=== PATIENT | male | born 2000 | race Caucasian/White ===

== ENCOUNTER 2019-06-26 18:54 | Emergency (ER) | payer OTHER ==
[~2019-06-26] VITALS: Ht 180 cm; Wt 79.9 kg
[2019-06-26 19:15] LABS: BILIRUBIN,URINE NEGATIVE (NEGATIVE); CLARITY,URINE CLEAR; COLOR,URINE YELLOW; GLUCOSE, URINE (UA) NEGATIVE (NEGATIVE); KETONES,URINE NEGATIVE (NEGATIVE); LEUKOCYTE ESTERASE ,URINE NEGATIVE (NEGATIVE); NITRITE,URINE NEGATIVE (NEGATIVE); PROTEIN,URINE NEGATIVE (NEGATIVE)
[2019-06-26 19:23] LABS: BACTERIA,URINE TRACE /HPF; SQUAMOUS EPITHELIAL CELL,UR RARE /HPF; WBC,URINE 0-2 /HPF
--- NOTE | 2019-06-26 19:32 | ED GU-Female ---
General Chief Complaint: - Urinary Stated Complaint: GROIN PAIN Nursing Triage Note: Patient ambulatory to ER triage room with complaint of lower abdominal/pelvic pain. Patient states this pain has been intermittent x 1 month but today the pain got much worse. He does have burning with urination. Nursing Sepsis Screen: No Definite Risk Source: patient Exam Limitations: no limitations History of Present Illness Date Seen by Provider: Jun 26, 2019 Time Seen by Provider: 19:30 Initial Comments To ER with reports of 6 months of dysuria, intermittent abdominal pain nausea and a subjective fever according to the since last night. She states he must have had a fever because "it was like a sauna sleeping next to him". He states that occasionally this pain radiates into his penis and occasionally radiates into his testicles but None currently. States that he has about 4-5 bowel movements per day, states he is a very anxious person, he states he is not an anxious person. Timing/Duration: constant Severity/Quality: moderate Location: suprapubic Radiation: none Activities at Onset: none Prior Genitourinary Problems: none Associated Symptoms: dysuria Allergies and Home Medications Allergies Coded Allergies: No Known Drug Allergies (Unverified , 06/26/19) Patient Home Medication List Home Medication List Reviewed: Yes Review of Systems Review of Systems Constitutional: see HPI EENTM: see HPI Respiratory: no symptoms reported Cardiovascular: no symptoms reported Genitourinary: no symptoms reported Musculoskeletal: no symptoms reported Skin: no symptoms reported Psychiatric/Neurological: No Symptoms Reported Endocrine: No Symptoms Reported Hematologic/Lymphatic: No Symptoms Reported Past Gaqefvf-Nubcyy-Cuocsv Hx Patient Social History Alcohol Use: Occasionally Uses Recreational Drug Use: No Smoking Status: Never a Smoker 2nd Hand Smoke Exposure: No Recent Foreign Travel: No Contact w/Someone Who Travel: No Recent Infectious Disease Expo: No Recent Hopitalizations: No Immunizations Up To Date Tetanus Booster (TDap): Less than 5yrs PED Vaccines UTD: Yes Seasonal Allergies Seasonal Allergies: No Past Medical History Surgeries: Yes Appendectomy Respiratory: No Cardiac: No Neurological: No Genitourinary: No Gastrointestinal: No Musculoskeletal: No Endocrine: No HEENT: No Cancer: No ADD/ADHD, Bipolar Integumentary: No Physical Exam Vital Signs Vital Signs - First Documented 06/26/19 19:00 Temp 36.9 Pulse 75 Resp 16 B/P (MAP) 131/76 (94) Pulse Ox 98 O2 Delivery Room Air Capillary Refill : Less Than 3 Seconds Height, Weight, BMI Height: '" Weight: lbs. oz. kg; 24.00 BMI Method: General Appearance: WD/WN, no apparent distress HEENT: PERRL/EOMI, normal ENT inspection Neck: non-tender, full range of motion Respiratory: no respiratory distress, no accessory muscle use Gastrointestinal: normal bowel sounds, soft, other (mild diffuse tenderness) Genital/Rectal: normal genital exam Extremities: normal range of motion, non-tender Neurologic/Psychiatric: alert, normal mood/affect, oriented x 3 Skin: normal color, warm/dry Progress/Results/Core Measures Suspected Sepsis Recent Fever Within 48 Hours: No Infection Criteria Present: None New/Unexplained Altered Menta: No Sepsis Screen: No Definite Risk SIRS Temperature: Pulse: 75 Respiratory Rate: 16 Laboratory Tests 06/26/19 19:38: White Blood Count 9.4 Blood Pressure 131 /76 Mean: 94 Laboratory Tests 06/26/19 19:38: Creatinine 1.24, Platelet Count 323, Total Bilirubin 0.3 Results/Orders Lab Results Laboratory Tests Test 06/26/19 19:11 06/26/19 19:38 Range/Units Urine Color YELLOW Urine Clarity CLEAR Urine pH 7.0 5-9 Urine Specific [place] 1.025 H 1.016-1.022 Urine Protein NEGATIVE NEGATIVE Urine Glucose (UA) NEGATIVE NEGATIVE Urine Ketones NEGATIVE NEGATIVE Urine Nitrite NEGATIVE NEGATIVE Urine Bilirubin NEGATIVE NEGATIVE Urine Urobilinogen 0.2 < = 1.0 MG/DL Urine Leukocyte Esterase NEGATIVE NEGATIVE Urine RBC (Auto) NEGATIVE NEGATIVE Urine RBC NONE /HPF Urine WBC 0-2 /HPF Urine Squamous Epithelial Cells RARE /HPF Urine Crystals NONE /LPF Urine Bacteria TRACE /HPF Urine Casts NONE /LPF Urine Mucus SMALL H /LPF Urine Culture Indicated NO White Blood Count 9.4 4.3-11.0 10^3/uL Red Blood Count 4.80 4.35-5.85 10^6/uL Hemoglobin 14.7 13.3-17.7 G/DL Hematocrit 43 40-54 % Mean Corpuscular Volume 89 80-99 FL Mean Corpuscular Hemoglobin 31 25-34 PG Mean Corpuscular Hemoglobin Concent 35 32-36 G/DL Red Cell Distribution Width 12.9 10.0-14.5 % Platelet Count 323 130-400 10^3/uL Mean Platelet Volume 9.7 7.4-10.4 FL Neutrophils (%) (Auto) 57 42-75 % Lymphocytes (%) (Auto) 26 12-44 % Monocytes (%) (Auto) 13 H 0-12 % Eosinophils (%) (Auto) 3 0-10 % Basophils (%) (Auto) 1 0-10 % Neutrophils # (Auto) 5.3 1.8-7.8 X 10^3 Lymphocytes # (Auto) 2.5 1.0-4.0 X 10^3 Monocytes # (Auto) 1.2 H 0.0-1.0 X 10^3 Eosinophils # (Auto) 0.3 0.0-0.3 10^3/uL Basophils # (Auto) 0.1 0.0-0.1 10^3/uL Sodium Level 139 135-145 MMOL/L Potassium Level 4.0 3.6-5.0 MMOL/L Chloride Level 106 98-107 MMOL/L Carbon Dioxide Level 22 21-32 MMOL/L Anion Gap 11 5-14 MMOL/L Blood Urea Nitrogen 17 7-18 MG/DL Creatinine 1.24 0.60-1.30 MG/DL Estimat Glomerular Filtration Rate > 60 BUN/Creatinine Ratio 14 Glucose Level 102 70-105 MG/DL Calcium Level 8.7 8.5-10.1 MG/DL Corrected Calcium 8.5 8.5-10.1 MG/DL Total Bilirubin 0.3 0.1-1.0 MG/DL Aspartate Amino Transf (AST/SGOT) 22 5-34 U/L Alanine Aminotransferase (ALT/SGPT) 26 0-55 U/L Alkaline Phosphatase 76 40-136 U/L Total Protein 6.8 6.4-8.2 GM/DL Albumin 4.3 3.2-4.5 GM/DL My Orders Orders - KIM GAMBLE APRN Neis Armond Dna Urine Test (06/26/19 19:11) Chlamydia Trachomatis Urine (06/26/19 19:11) Cbc With Automated Diff (06/26/19 19:30) Comprehensive Metabolic Panel (06/26/19 19:30) Ct Abd/Pelvis Wo(Kidney Stone) (06/26/19 19:30) Dicyclomine Capsule (Bentyl Capsule) (06/26/19 19:45) Vital Signs/I&O 06/26/19 06/26/19 19:00 19:54 Temp 36.9 36.9 Pulse 75 Resp 16 B/P (MAP) 131/76 (94) Pulse Ox 98 O2 Delivery Room Air Capillary Refill : Less Than 3 Seconds Blood Pressure Mean: 94 Diagnostic Imaging Diagonstic Imaging: CT Comments NAME: STEPHANIE JOHNSON [facility] REC#: [id number] PT STATUS: REG ER : 2000 PHYSICIAN: KIM GAMBLE INVENTORY ASSOCIATE ADMIT DATE: 06/26/19/ER Draft Date of Exam:06/26/19 CT ABD/PELVIS WO(KIDNEY STONE) PROCEDURE: CT urinary tract, rule out kidney stone. TECHNIQUE: Multiple contiguous axial images were obtained through the abdomen and pelvis without the use of intravenous contrast. Auto Exposure Controls were utilized during the CT exam to meet ALARA standards for radiation dose reduction. INDICATION: Left lower quadrant abdominal pain COMPARISON: None FINDINGS: The lung bases are clear. Gallbladder is contracted. There is food within the stomach. Solid organs have a normal appearance. There is some mild constipation throughout the colon without obstruction or ileus. The small bowel is normal. Distal ureters and urinary bladder are normal. There is no inflammatory process. The appendix is surgically absent. No hernia identified. Osseous structures are age-appropriate. IMPRESSION: 1. Mild constipation without obstruction or ileus 2. No renal calculi or hydronephrosis 3. Surgically absent appendix. Dictated on workstation # [id number] Dict: 06/26/191945 Trans: 06/26/19 [facility] [id number] Interpreted by: CLAY GONCALVES Electronically signed by: Departure Impression Primary Impression: Abdominal pain Qualified Codes: R10.84 - Generalized abdominal pain Disposition: 01 HOME, SELF-CARE Condition: Improved Departure-Patient Inst. Decision time for Depature: 19:57 Referrals: ORIANA JOSEPH HOLLY A MD ENOCH, BETHANY N MD GARNER, MINDI DO GELLENDER, RICHARD A DO NO,LOCAL PHYSICIAN (PCP) Primary Care Physician VIDAL RAMACHANDRAN CHAD C MD Patient Instructions: Acute Abdomen (Belly Pain), Adult (DC) Add. Discharge Instructions: 1. Follow-up with your regular physician later this week for recheck. If you do not have one a list has been provided for you. All discharge instructions reviewed with patient and/or family. Voiced understanding. Scripts Dicyclomine HCl (Dicyclomine HCl) 10 Mg Capsule 10 MG PO TID, #10 CAP Prov: KIM GAMBLE APRN 06/26/19 KIM GAMBLE APRN Jun 26, 2019 19:32
[2019-06-26 19:43] LABS: BASOPHILS # (AUTO) 0.1 10^3/uL (0.0-0.1); BASOPHILS % (AUTO) 1 % (0-10); EOSINOPHILS # (AUTO) 0.3 10^3/uL (0.0-0.3); EOSINOPHILS % (AUTO) 3 % (0-10); HEMATOCRIT 43 % (40-54); HEMOGLOBIN 14.7 G/DL (13.3-17.7); LYMPHOCYTES # (AUTO) 2.5 X 10^3 (1.0-4.0); LYMPHOCYTES % (AUTO) 26 % (12-44); MEAN CORPUSCULAR HEMOGLOBIN 31 PG (25-34); MEAN CORPUSCULAR HGB CONC 35 G/DL (32-36); MEAN CORPUSCULAR VOLUME 89 FL (80-99); MEAN PLATELET VOLUME 9.7 FL (7.4-10.4); MONOCYTES # (AUTO) 1.2 X 10^3 (0.0-1.0); MONOCYTES % (AUTO) 13 % (0-12); NEUTROPHILS # (AUTO) 5.3 X 10^3 (1.8-7.8); NEUTROPHILS % (AUTO) 57 % (42-75); PLATELET COUNT 323 10^3/uL (130-400); RED CELL DISTRIBUTION WIDTH 12.9 % (10.0-14.5); WHITE BLOOD COUNT 9.4 10^3/uL (4.3-11.0)
[2019-06-26] MEDS ORDERED: DICYCLOMINE 10 MG (BENTYL) CAP PO SCH (19:45)
--- NOTE | 2019-06-26 19:55 | Diagnostic Imaging Report ---
PROCEDURE: CT urinary tract, rule out kidney stone. TECHNIQUE: Multiple contiguous axial images were obtained through the abdomen and pelvis without the use of intravenous contrast. Auto Exposure Controls were utilized during the CT exam to meet ALARA standards for radiation dose reduction. INDICATION: Left lower quadrant abdominal pain COMPARISON: None FINDINGS: The lung bases are clear. Gallbladder is contracted. There is food within the stomach. Solid organs have a normal appearance. There is some mild constipation throughout the colon without obstruction or ileus. The small bowel is normal. Distal ureters and urinary bladder are normal. There is no inflammatory process. The appendix is surgically absent. No hernia identified. Osseous structures are age-appropriate. IMPRESSION: 1. Mild constipation without obstruction or ileus 2. No renal calculi or hydronephrosis 3. Surgically absent appendix. Dictated by: Dictated on workstation # [id number]
[2019-06-26 20:00] LABS: ALANINE AMINOTRANSFERASE 26 U/L (0-55); ALBUMIN 4.3 GM/DL (3.2-4.5); ALKALINE PHOSPHATASE 76 U/L (40-136); BILIRUBIN,TOTAL 0.3 MG/DL (0.1-1.0); BUN/CREATININE RATIO 14; CALCIUM 8.7 MG/DL (8.5-10.1); CARBON DIOXIDE 22 MMOL/L (21-32); CHLORIDE 106 MMOL/L (98-107); CREATININE SERUM 1.24 MG/DL (0.60-1.30); GFR ESTIMATED > 60; GLUCOSE 102 MG/DL (70-105); SODIUM 139 MMOL/L (135-145); TOTAL PROTEIN 6.8 GM/DL (6.4-8.2)
[2019-06-26 20:25] VITALS: BP 131/76
[2019-06-26] MEDS ORDERED: DICY10CA12 PO (20:25)
== END 2019-06-26 20:28 | disposition home or self-care (01) ==
LOC: ER 18:56
DX: R10.84 Generalized abdominal pain (principal); F90.9 Attention-deficit hyperactivity disorder, unspecified type; F31.9 Bipolar disorder, unspecified; Z90.49 Acquired absence of other specified parts of digestive tract
CPT/HCPCS: 36415; 74176; 80053; 81000; 85025; 87491; 87591